=== PATIENT | male | born 1950 | race Two or more races ===

== ENCOUNTER 2022-09-08 19:30 | Inpatient (IN) | payer MEDICARE, OTHER ==
[~2022-09-08] VITALS: Ht 172.7 cm; Wt 74.8 kg
--- NOTE | 2022-09-08 20:18 | NUR ---
BLOOD COLLECTED AND SENT TO LAB
--- NOTE | 2022-09-08 20:19 | NUR ---
CODE STROKE ACTIVATED
--- NOTE | 2022-09-08 20:22 | NUR ---
PATIENT TO CT WITH RN AT BEDSIDE
--- NOTE | 2022-09-08 20:23 | NUR ---
TELE NEUROLOGY ACTIVATED.
[2022-09-08 20:26] LABS: BASOPHILS # (AUTO) 0.1 K/uL (0.0-0.2); EOSINOPHILS % (AUTO) 1.8 % (0.0-6.0); HEMATOCRIT 38 % (39-51); HEMOGLOBIN 13.6 g/dL (13.5-17.5); LYMPHOCYTES # (AUTO) 2.6 K/uL (0.8-4.8); LYMPHOCYTES % (AUTO) 24.4 % (20.0-44.0); MEAN CORPUSCULAR HGB CONC 35 g/dl (31.0-36.0); MEAN CORPUSCULAR VOLUME 85 fL (80-96); MONOCYTES # (AUTO) 0.6 K/uL (0.1-1.30); NEUTROPHILS # (AUTO) 7.1 K/uL (1.8-8.9); NEUTROPHILS % (AUTO) 66.8 % (43.0-81.0); PLATELET COUNT (AUTO) 262 K/uL (150-450); RED BLOOD CELL COUNT(AUTO) 4.52 MIL/uL (4.5-6.0); WHITE BLOOD COUNT (AUTO) 10.7 K/uL (4.3-11.0)
--- NOTE | 2022-09-08 20:29 | NUR ---
PATIENT BACK FROM CT
[2022-09-08 20:36] LABS: CALCIUM, SERUM 8.2 mg/dL (8.5-10.1); CARBON DIOXIDE 30 mmol/L (21-32); CHLORIDE 100 mmol/L (98-107); GLUCOSE 291 mg/dL (74-106); POTASSIUM 3.9 mmol/L (3.5-5.1); SODIUM SERUM 137 mmol/L (136-145); UREA NITROGEN, BLOOD 22 mg/dL (7-18)
[2022-09-08 20:42] LABS: ALANINE AMINOTRANSFERASE 19 U/L (12-78); ALBUMIN 2.9 g/dL (3.4-5.0); ALKALINE PHOSPHATASE 76 U/L (46-116); ASPARTATE AMINOTRANSFERASE 9 U/L (15-37); BILIRUBIN,TOTAL 0.4 mg/dL (0.2-1.0); TOTAL PROTEIN, SERUM 5.9 g/dL (6.4-8.2)
--- NOTE | 2022-09-08 20:45 | NUR ---
PT SPEAKING TO NEUROLOGIST DR SMITH
--- NOTE | 2022-09-08 20:46 | NUR ---
NEURO ASSESSMENT IN PROCESS
--- NOTE | 2022-09-08 20:59 | NUR ---
CRYSTAL COLLECTED AND SENT TO LAB
--- NOTE | 2022-09-08 21:11 | NUR ---
DR FRAZIER ON PHONE WITH DR SMITH
--- NOTE | 2022-09-08 21:19 | NUR ---
PT TRANSPORTED TO CT
--- NOTE | 2022-09-08 21:22 | NUR ---
PT UNABLE TO PROVIDE URINE SAMPLE AT THIS TIME
[2022-09-08] MEDS ORDERED: IOHEXOL-350 100 ML VIAL IV ONE (21:28)
[2022-09-08] MEDS ORDERED: IV NS 0.9% 250 ML IV ONE (21:28)
--- NOTE | 2022-09-08 21:37 | NUR ---
PT RETURNED TO ER BED [address]
--- NOTE | 2022-09-08 22:18 | NUR ---
Nacho goel in ED - 09/08/22 at 2218 by KHADIJAH PT ABAD TO NANY
--- NOTE | 2022-09-08 22:19 | NUR ---
PT UNABLE TO PROVIDE URINE SAMPLE
[2022-09-08] MEDS ORDERED: ASPIRIN 81 MG TAB.CHEW PO ONE (22:30)
[2022-09-08] MEDS ORDERED: ASPIRIN 81 MG TAB.CHEW ONE (22:30)
[2022-09-08 23:46] LABS: THYROID STIMULATING HORMONE 1.093 uIU/mL (0.358-3.74)
[2022-09-09 00:05] LABS: MAGNESIUM 1.6 mg/dL (1.8-2.4)
--- NOTE | 2022-09-09 00:51 | NUR ---
PER MUNA AT [facility] PT GOT AUTH TO STAY HERE AT THE HOSPITAL. AUTH # [id number]
--- NOTE | 2022-09-09 01:31 | NUR ---
PT RECIEVED BED 312-1
[2022-09-09] MEDS ORDERED: ACETAMINOPHEN 325 MG TABLET PO PRN (02:30)
[2022-09-09] MEDS ORDERED: Magnesium 1GM/D5W 100ML PREMIX 100 ML IV SCH (02:30)
[2022-09-09] MEDS ORDERED: MAG HYDROX/AL HYDROX/SIMETH 30 ML UDC PO PRN (02:30)
[2022-09-09] MEDS ORDERED: LEVO25TA7 PO (02:51)
[2022-09-09] MEDS ORDERED: ATOR40TA PO (02:51)
[2022-09-09] MEDS ORDERED: HYDR-4077 PO (02:51)
[2022-09-09] MEDS ORDERED: APIX5TAB PO (02:51)
[2022-09-09] MEDS ORDERED: FINA5TAB11 PO (02:51)
[2022-09-09] MEDS ORDERED: CALC-1143 PO (02:51)
[2022-09-09] MEDS ORDERED: ENAL-78 PO (02:51)
[2022-09-09] MEDS ORDERED: EMPA25TA PO (02:51)
[2022-09-09] MEDS ORDERED: BUME2TAB7 PO (02:51)
[2022-09-09] MEDS ORDERED: POTA-88 PO (02:51)
[2022-09-09] MEDS ORDERED: DULA1.5P SQ (02:51)
[2022-09-09] MEDS ORDERED: METF-442 PO (02:51)
[2022-09-09] MEDS ORDERED: GLIM4TAB37 PO (02:51)
[2022-09-09] MEDS ORDERED: METO-357 PO (02:51)
[2022-09-09] MEDS ORDERED: DULO60CA45 PO (02:51)
--- NOTE | 2022-09-09 03:05 | NUR ---
REPORT GIVEN TO BAILEE
[2022-09-09 03:50] VITALS: BP 116/70
--- NOTE | 2022-09-09 03:50 | NUR ---
RN NOTES; RECEIVED PT FROM ER IN RM 312-1 WITH ISMA SHIELDS ABLE TO MAKE NEEDS KNOWN,MAY WELL ON RM AIR SATTING 97.6%,NO SIGN SOB/DISTRESS NOTED,DENIES ANY PAIN/DISCOMFORT AT THIS TIME,IV ACCESS RFA 18G SL,PATENT AND INTACT,PT WAS ORIENT THE RM IN VERBALLY UNDERSTANDING,SAFETY MEASURED IN PLACE,CALL LIGHT WITHIN REACH,WILL CONTINUE TO MONITOR.
--- NOTE | 2022-09-09 03:58 | NUR ---
PT TRANSFERRED TO 312-1 VIA ACLS PROTOCOL. VSS. ALL BELONGINGS WITH PT. PT TOLERATED TRANSFER WELL.
--- NOTE | 2022-09-09 05:50 | NUR ---
RN NOTES; I TEXTED DOC,Jessica PATEL,REGARDING VTE SCORE 2,SHE REPPLY WAIT FOR NEUROLOGY DOCTOR EVENTUALLY THEY WILL ORDER ANTICOAGULANT,
[2022-09-09] MEDS ORDERED: BLOOD SUGAR DIAGNOSTIC 1 EACH STRIP IN SCH ×2 (06:00→07:30)
[2022-09-09 06:11] LABS: BASOPHILS # (AUTO) 0.1 K/uL (0.0-0.2); BASOPHILS % (AUTO) 0.6 % (0.0-2.0); EOSINOPHILS % (AUTO) 2.9 % (0.0-6.0); HEMATOCRIT 36 % (39-51); HEMOGLOBIN 12.5 g/dL (13.5-17.5); LYMPHOCYTES # (AUTO) 1.8 K/uL (0.8-4.8); LYMPHOCYTES % (AUTO) 21.5 % (20.0-44.0); MEAN CORPUSCULAR HGB CONC 35 g/dl (31.0-36.0); MEAN CORPUSCULAR VOLUME 85 fL (80-96); MONOCYTES # (AUTO) 0.6 K/uL (0.1-1.30); MONOCYTES % (AUTO) 6.9 % (2.0-12.0); NEUTROPHILS # (AUTO) 5.7 K/uL (1.8-8.9); NEUTROPHILS % (AUTO) 68.1 % (43.0-81.0); PLATELET COUNT (AUTO) 250 K/uL (150-450); RED BLOOD CELL COUNT(AUTO) 4.31 MIL/uL (4.5-6.0); WHITE BLOOD COUNT (AUTO) 8.3 K/uL (4.3-11.0)
--- NOTE | 2022-09-09 06:23 | NUR ---
RN CLOSING NOTES; PATIENT IN BED SLEEPING BUT EASY TO AROUSED,,AOX3 ABLE TO MAKE NEEDS KNOWN,MAY WELL ON RM AIR SATTING 98%,NO SIGN SOB/DISTRESS NOTED,DENIES ANY PAIN/DISCOMFORT DURING SHIFT,,IV ACCESS RFA 18G SL,PATENT AND INTACT,SAFETY MEASURED IN PLACE,CALL LIGHT WITHIN REACH,WILL ENDORSED TO NEXT SHIFT.
[2022-09-09 06:49] LABS: ALANINE AMINOTRANSFERASE 17 U/L (12-78); ALKALINE PHOSPHATASE 63 U/L (46-116); ASPARTATE AMINOTRANSFERASE 7 U/L (15-37); BILIRUBIN,TOTAL 0.3 mg/dL (0.2-1.0); CALCIUM, SERUM 8.5 mg/dL (8.5-10.1); CARBON DIOXIDE 27 mmol/L (21-32); CHLORIDE 100 mmol/L (98-107); GLUCOSE 267 mg/dL (74-106); MAGNESIUM 1.7 mg/dL (1.8-2.4); POTASSIUM 3.7 mmol/L (3.5-5.1); SODIUM SERUM 136 mmol/L (136-145); UREA NITROGEN, BLOOD 21 mg/dL (7-18)
[2022-09-09 07:00] VITALS: BP 170/96
--- NOTE | 2022-09-09 07:06 | NUR ---
TEXT DR. TOURE FOR MRI APPROVAL.
--- NOTE | 2022-09-09 07:08 | NUR ---
ON HOLD PER DR. TOURE, HE WILL LET US KNOW.
[2022-09-09 07:23] LABS: CHOLESTEROL 132 mg/dL (<200); HDL CHOLESTEROL 23 mg/dL (40-60); LDL 27 mg/dL (0-99); THYROID STIMULATING HORMONE 0.754 uIU/mL (0.358-3.74); TRIGLYCERIDES 750 mg/dL (30-150)
[2022-09-09] MEDS ORDERED: LACT1CAP71 PO (07:29)
--- NOTE | 2022-09-09 08:13 | NUR ---
DESKTOP PUBLISHING ASSOCIATE OPENING NOTE Patient in bed, awake. A/O x 3, able to make needs known. On room air, breathing evenly and unlabored. No SOB or s/s of distress noted. IV access on RFA #18 SL, intact and patent. On tele monitoring showing SB, HR 54. Safety precautions in place: bed in low, locked position; siderails up x2; call light within reach. Will continue to monitor.
[2022-09-09] MEDS: ASPIRIN EC 325 MG TABLET.DR PO SCH (08:49)
[2022-09-09] MEDS: PANTOPRAZOLE 40 MG VIAL IV SCH (08:50)
--- NOTE | 2022-09-09 09:03 | NUR ---
MRI APPROVED, ONLINE MARKETING COORDINATOR NOTIFIED.
[2022-09-09] MEDS ORDERED: DEXTROSE 50%-WATER 50 ML DISP.SYRIN IV PRN (11:00)
--- NOTE | 2022-09-09 11:22 | NUR ---
RN NOTE Patient brought to MRI for MRI of head and brain.
[2022-09-09 12:00] VITALS: BP 148/86
--- NOTE | 2022-09-09 12:30 | NUR ---
RN NOTE Patient brought back to Rm 312-1.
[2022-09-09] MEDS ORDERED: GADOTERATE MEGLUMINE 10 MMOL/20 ML VIAL IV ONE (12:32)
[2022-09-09] MEDS: Magnesium 1GM/D5W 100ML PREMIX 100 ML IV SCH ×2 (13:23→14:36)
[2022-09-09] MEDS: INSULIN REGULAR, HUMAN 100 UNIT/ML 3 ML VIAL SQ PRN ×3 (13:33→22:46)
[2022-09-09] MEDS: BLOOD SUGAR DIAGNOSTIC 1 EACH STRIP IN SCH ×3 (13:33→22:41)
[2022-09-09 14:41] LABS: BILIRUBIN,URINE NEGATIVE (NEGATIVE); COLOR,URINE YELLOW (YELLOW); LEUKOCYTE ESTERASE ,URINE NEGATIVE (NEGATIVE); NITRITE, URINE NEGATIVE (NEGATIVE); PH,URINE 5.5 (5.0-8.0); PROTEIN,URINE NEGATIVE (NEGATIVE); UGLUCOSE NEGATIVE (NEGATIVE); UROBILINOGEN,URINE 0.2 EU/dL (0.2)
[2022-09-09 16:00] VITALS: BP 141/74
--- NOTE | 2022-09-09 16:04 | NUR ---
SS consult requested for code stroke. SW will follow up at a later time.
--- NOTE | 2022-09-09 18:57 | NUR ---
MACHINE STRAP BUCKLER CLOSING NOTE Patient in bed, resting. A/O x 3, able to make needs known. On room air, breathing evenly and unlabored. No SOB or s/s of distress noted. IV access on RFA #18 SL, intact and patent. On tele monitoring showing SR, HR 68. All needs attended to. Due meds given. Safety precautions in place: bed in low, locked position; siderails up x2; call light within reach. Will endorse to awake overnight monitor nurse for NEHAL.
--- NOTE | 2022-09-09 19:30 | NUR ---
COMMAND AND CONTROL OFFICER OPEN NOTE.
--- NOTE | 2022-09-09 19:30 | NUR ---
MED SURGE OPEN NOTE: ALERT AND ORIENTED X3. UNLABORED BREATHING. ON TELE MONITOR WITH A READING OF SINUS RHYTHM 66. IV SITE ON RIGHT FOREARM. PATENT. NO S/S OF COMPLICATIONS. REPOSITIONED WITH PILLOWS, HOB ELEVATED SEMI-FOWLERS, BILATERAL HALF SIDE RAILS UPX2. BED IS LOCKED IN LOW POSITION, BED EXIT ALARM ON. CALL LIGHT IN REACH. DECLINES PAIN OR DISCOMFORT.
[2022-09-09 20:00] VITALS: BP 161/83
[2022-09-09] MEDS ORDERED: SIMVASTATIN 40 MG TABLET PO SCH (22:00)
[2022-09-09] MEDS: SIMVASTATIN 20 MG TABLET PO SCH (22:24)
[2022-09-10] VITALS: BP_SYST 128; BP_SYST 161; BP_DIAS 73; BP_DIAS 83
[2022-09-10 04:00] VITALS: BP_SYST 144; BP_SYST 146; BP_DIAS 75; BP_DIAS 80
--- NOTE | 2022-09-10 06:29 | NUR ---
CONTROL AND RECOVERY SPECIAL TACTICS CLOSING NOTE: ALERT AND ORIENTED X3. UNLABORED BREATHING. ON TELE MONITOR WITH A READING OF SINUS RHYTHM 65. IV SITE ON RIGHT FOREARM. PATENT. NO S/S OF COMPLICATIONS. KEPT CLEAN AND COMFORTABLE. TURNED AND REPOSITIONED WITH PILLOWS, HOB ELEVATED SEMI-FOWLERS, BILATERAL HALF SIDE RAILS UPX2. BED IS LOCKED IN LOW POSITION, BED EXIT ALARM ON. CALL LIGHT IN REACH. DECLINES PAIN OR DISCOMFORT.
[2022-09-10 06:36] LABS: BASOPHILS # (AUTO) 0.1 K/uL (0.0-0.2); BASOPHILS % (AUTO) 0.7 % (0.0-2.0); EOSINOPHILS % (AUTO) 2.7 % (0.0-6.0); HEMATOCRIT 37 % (39-51); HEMOGLOBIN 12.7 g/dL (13.5-17.5); LYMPHOCYTES # (AUTO) 1.8 K/uL (0.8-4.8); LYMPHOCYTES % (AUTO) 21.7 % (20.0-44.0); MEAN CORPUSCULAR HGB CONC 34 g/dl (31.0-36.0); MEAN CORPUSCULAR VOLUME 85 fL (80-96); MONOCYTES # (AUTO) 0.6 K/uL (0.1-1.30); MONOCYTES % (AUTO) 6.9 % (2.0-12.0); NEUTROPHILS # (AUTO) 5.8 K/uL (1.8-8.9); PLATELET COUNT (AUTO) 233 K/uL (150-450); RED BLOOD CELL COUNT(AUTO) 4.36 MIL/uL (4.5-6.0); WHITE BLOOD COUNT (AUTO) 8.5 K/uL (4.3-11.0)
[2022-09-10 07:17] LABS: CALCIUM, SERUM 8.3 mg/dL (8.5-10.1); POTASSIUM 3.5 mmol/L (3.5-5.1)
[2022-09-10 07:37] LABS: PHOSPHORUS 3.8 mg/dL (2.5-4.9)
--- NOTE | 2022-09-10 07:49 | NUR ---
CHEMOTHERAPIST OPENING NOTE Patient in bed, awake. A/O x 3, able to make needs known. On room air, breathing evenly and unlabored. No SOB or s/s of distress noted. IV access on RFA #18 SL, intact and patent. Patient denies any pain or discomfort at this time. On tele monitoring showing SR, HR 60. Safety precautions in place: bed in low, locked position; siderails up x2; call light within reach. Will continue to monitor.
[2022-09-10] MEDS: PANTOPRAZOLE 40 MG VIAL IV SCH (08:09)
[2022-09-10] MEDS: ASPIRIN EC 325 MG TABLET.DR PO SCH (08:09)
[2022-09-10] MEDS: Fenofibrate 48 MG TABLET PO SCH (08:10)
[2022-09-10] MEDS: INSULIN REGULAR, HUMAN 100 UNIT/ML 3 ML VIAL SQ PRN ×4 (08:15→22:52)
[2022-09-10] MEDS: BLOOD SUGAR DIAGNOSTIC 1 EACH STRIP IN SCH ×4 (08:16→22:50)
--- NOTE | 2022-09-10 11:00 | NUR ---
Hair And Makeup Designer Consult CLAUDIA received a consult request for a stroke protocol. Pt. is 72 y.o. white male who was admitted for altered mental status. CLAUDIA met with pt. at bedside. Pt. appears well groomed and is alert and oriented 3x and was cooperative throughout assessment. made normal eye contact, had a cheerful mood, and had a full affect. Pt. confirmed his address and person of contact information. Per pt. report that he is ambulatory. Pt. reported receiving financial assistance through [employer] and [employer]. Pt. reported a hx of alcohol abuse and was going to AA meetings around 10 years ago. Pt. reported no hx of psychiatric dx and did report auditory hallucinations. CLAUDIA assessed for suicidal and homicidal ideation in which pt. reported no plan, means, or intent. Pt. 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 DC plan: When asked about pt.s plans after being discharged, pt. reported report returning back to his home. CLAUDIA provided pt. with post stroke empowerment resources in which pt. accepted them. CLAUDIA administered the PHQ9 post stroke depression scale, pt. scored a 5. CLAUDIA relayed information to KENAN Macias and requested a psych eval in which she was agreeable.
--- NOTE | 2022-09-10 18:57 | NUR ---
PLASTICS PATTERNMAKER CLOSING NOTE Patient in bed, resting. A/O x 3, able to make needs known. Stable on room air, breathing evenly and unlabored. No SOB or s/s of distress noted. IV access on RFA #18 SL, intact and patent. Due meds given. All needs attended to. On tele monitoring showing SR, HR 60. Safety precautions in place: bed in low, locked position; siderails up x2; call light within reach. Will endorse to matcher offbearer nurse for NEHAL.
--- NOTE | 2022-09-10 19:23 | NUR ---
noc rn opening note received patient in bed, a/ox3. no s/s of apparent distress on room air. denies pain at this time. tele monitor reading sr 72 bpm. rt. fa #18g on saline lock. call light within reach, re-oriented and encouraged with the use of call light. safety in place. will continue with patient care plan.
[2022-09-10 20:00] VITALS: BP 159/85
[2022-09-10] MEDS: SIMVASTATIN 20 MG TABLET PO SCH (22:50)
[2022-09-10] MEDS: INSULIN GLARGINE, 100 UNIT/ML CARTRIDGE SQ SCH (22:51)
[2022-09-10 23:51] VITALS: BP 163/87
[2022-09-11 05:00] VITALS: BP 133/54
[2022-09-11] MEDS: BLOOD SUGAR DIAGNOSTIC 1 EACH STRIP IN SCH ×4 (06:56→21:25)
[2022-09-11] MEDS: INSULIN REGULAR, HUMAN 100 UNIT/ML 3 ML VIAL SQ PRN ×4 (06:57→21:22)
--- NOTE | 2022-09-11 07:40 | NUR ---
RN OPENING NOTE PT IS ALERT AND ORIENTED X3-4. PT IS ON ROOM AIR TOLERATING AT ABOVE 92%. PT IS INCONTINENT. PT HAS L FA BRUISE. PT HAS RIGHT FA 18 GAUGE. IV PATENT, INTACT AND FLUSHING WELL. PT HAS RIGHT SIDED WEAKNESS AND CANT MOVE RIGHT ARM OR LEG. PT ABLE TO MAKE NEEDS KNOWN. PT ON TELE MONITOR. ALL SAFETY MEASURES IN PLACE. CALL LIGHT WITHIN REACH. BED LOCKED AT LOWEST POSITION. SIDE RAILS UP X2.
--- NOTE | 2022-09-11 07:49 | NUR ---
report given to Lianna for continuity of patient care.
[2022-09-11] MEDS: ASPIRIN EC 325 MG TABLET.DR PO SCH (08:47)
[2022-09-11] MEDS: PANTOPRAZOLE 40 MG TABLET.DR PO SCH (08:47)
[2022-09-11] MEDS: Fenofibrate 48 MG TABLET PO SCH (09:54)
[2022-09-11 12:00] VITALS: BP 163/90
[2022-09-11] MEDS ORDERED: FENO48TA PO (13:08)
[2022-09-11] MEDS ORDERED: ASPI-1100 PO (13:08)
[2022-09-11 16:00] VITALS: BP 145/92
--- NOTE | 2022-09-11 17:00 | NUR ---
rn note pt pending discharge. pt unable to be discharged today due to pending auth
--- NOTE | 2022-09-11 18:56 | NUR ---
RN CLOSING NOTE PT IS ALERT AND ORIENTED X3-4. PT IS ON ROOM AIR TOLERATING AT ABOVE 94%. PT IS INCONTINENT. PT HAS L FA BRUISE. PT HAS RIGHT FA 18 GAUGE. IV PATENT, INTACT AND FLUSHING WELL. PT HAS RIGHT SIDED WEAKNESS AND CANT MOVE RIGHT ARM OR LEG. ALL NEEDS MET. PT ABLE TO MAKE NEEDS KNOWN. PT ON TELE MONITOR AT SINUS RHYTM 72.NO PAIN OR DISCOMOFRT AT THIS TIME. ALL SAFETY MEASURES IN PLACE. CALL LIGHT WITHIN REACH. BED LOCKED AT LOWEST POSITION. SIDE RAILS UP X2.
--- NOTE | 2022-09-11 19:56 | NUR ---
RN OPENING NOTE RECEIVED PT IN BED AAOX3 ABLE TO MEKE NEEDS KNOWN,ON ROOM AIR TOLERATING WELL, NO SIGN SOB/DISTRESS NOTED,IV ACCESS ON LFA 18 GAUGE.PATENT, INTACT AND FLUSHING WELL, ALL SAFETY MEASURES IN PLACE. CALL LIGHT WITHIN REACH.WILL CONTINUE TO MONITOR.
[2022-09-11 20:37] VITALS: BP 151/85
[2022-09-11] MEDS: SIMVASTATIN 20 MG TABLET PO SCH (21:04)
[2022-09-11] MEDS: INSULIN GLARGINE, 100 UNIT/ML CARTRIDGE SQ SCH (21:23)
[2022-09-12 00:46] VITALS: BP 149/90
[2022-09-12 05:08] VITALS: BP 154/97
--- NOTE | 2022-09-12 06:20 | NUR ---
RN CLOSING NOTES; PATIENT IN BED SLEEPING BUT EASY TO AROUSED,,AOX3 ABLE TO MAKE NEEDS KNOWN,MAY WELL ON RM AIR SATTING 97%,NO SIGN SOB/DISTRESS NOTED,DENIES ANY PAIN/DISCOMFORT DURING SHIFT,,IV ACCESS RFA 18G SL,PATENT AND INTACT,SAFETY MEASURED IN PLACE,CALL LIGHT WITHIN REACH,WILL ENDORSED TO NEXT SHIFT.
[2022-09-12] MEDS: BLOOD SUGAR DIAGNOSTIC 1 EACH STRIP IN SCH ×2 (06:31→11:32)
[2022-09-12] MEDS: INSULIN REGULAR, HUMAN 100 UNIT/ML 3 ML VIAL SQ PRN ×2 (06:31→11:34)
--- NOTE | 2022-09-12 07:23 | NUR ---
RN OPENING NOTES RECEIVED PATIENT IN BED AWAKE, A/O X3, VERBALLY RESPONSIVE. NO SIGNS OF ACUTE DISTRESS NOTED. ON ROOM AIR, TOLERATING WELL. NO SOB NOTED, BREATHING EVEN AND UNLABORED. NO C/O PAIN AT THIS TIME. ON TELE MONITOR SHOWING SINUS THAI, HR @58. NO CARDIAC DISTRESS NOTED. WITH PERIPHERAL ACCESS ON RIGHT FOREARM #18G, INTACT AND PATENT, SALINE LOCKED. SAFETY MEASURE IN PLACE. BED IN LOWEST AND LOCKED POSITION, SIDE RAILS UP X2, CALL LIGHT PLACED WITHIN EASY REACH. WILL CONTINUE TO MONITOR PATIENT.
[2022-09-12] MEDS: Fenofibrate 48 MG TABLET PO SCH (08:22)
[2022-09-12] MEDS: PANTOPRAZOLE 40 MG TABLET.DR PO SCH (08:22)
[2022-09-12] MEDS: ASPIRIN EC 325 MG TABLET.DR PO SCH (08:22)
--- NOTE | 2022-09-12 14:45 | NUR ---
FLAP LINING BINDER NOTE PATIENT DISCHARGED TO [facility] IN STABLE CONDITION. PATIENT AWAKE, ALERT AND ORIENTED X3, VERBALLY RESPONSIVE. NO SIGNS OF ACUTE DISTRESS NOTED. STABLE ON ROOM AIR. IV ACCESS ON RIGHT FOREARM REMOVED, NO BLEEDING NOTED. PRESSURE DRESSING APPLIED. ALL BELONGINGS ACCOUNTED FOR, FORM SIGNED BY PATIENT. DISCHARGE INSTRUCTIONS AND HEALTH TEACHINGS PROVIDED TO PATIENT WITH VERBALIZATION OF UNDERSTANDING. REPORT GIVEN TO OLGA Lux RN FROM [facility], PATIENT GOING TO ROOM 404-A. EXIT CARE FOLDER GIVEN TO AMBULANCE CREW. HANDOFF REPORT GIVEN. PATENT LEFT UNIT @1440 [facility]IA [facility]. CN AWARE OF DISCHARGE.
== END 2022-09-12 14:52 | DRG 68 ==
LOC: ER 19:32 → TELE 09-09 01:32
PROVIDERS: ADMIT Registered Nurse; ATTEND Nurse Practitioner Family
DX: I66.21 Occlusion and stenosis of right posterior cerebral artery (principal); I69.351 Hemiplegia and hemiparesis following cerebral infarction affecting right dominant side; R47.01 Aphasia; Z20.822 Contact with and (suspected) exposure to COVID-19; E03.9 Hypothyroidism, unspecified; R41.82 Altered mental status, unspecified; E11.65 Type 2 diabetes mellitus with hyperglycemia; I10 Essential (primary) hypertension; Z79.899 Other long term (current) drug therapy; I25.10 Atherosclerotic heart disease of native coronary artery without angina pectoris; G93.89 Other specified disorders of brain; F01.50 Vascular dementia, unspecified severity, without behavioral disturbance, psychotic disturbance, mood disturbance, and anxiety; E04.2 Nontoxic multinodular goiter; F43.21 Adjustment disorder with depressed mood; I67.1 Cerebral aneurysm, nonruptured; I66.02 Occlusion and stenosis of left middle cerebral artery
CPT/HCPCS: 36415; 70450-TC; 70496-TC; 70498-TC; 70551-TC; 71045-TC; 80048-TC; 80053-TC; 80061-TC; 80076-TC; 82962-TC; 83605-TC; 83735-TC; 84100-TC; 84443-TC; 84484-TC; 85025-TC; 85730-TC; 87040-TC; 87081-TC; 87086-TC; 92521; 92526; 92611-TC; 93307-TC; 97110-TC; 97112-TC; 97530-TC; 97535-TC; A9575; C9113; C9803; G0378; J1815; J3475; J7050; Q9967